=== PATIENT | female | born 1995 | race African-American/Black ===

== ENCOUNTER 2018-06-11 20:59 | Emergency (ER) | payer OTHER | END 2018-06-11 21:15 | disposition left against medical advice (07) | LOC: ER 20:59 | DX: Z53.21 Procedure and treatment not carried out due to patient leaving prior to being seen by health care provider (principal) ==

== ENCOUNTER 2018-06-14 13:09 | Emergency (ER) | payer MEDICARE, OTHER ==
[~2018-06-14] VITALS: Ht 165.1 cm; Wt 60.0 kg
[2018-06-14] MEDS ORDERED: TETANUS, DIPHTHERIA, PERTUSSIS VAC/PF 0.5ML (>7YR OLD) IM ONE (18:30)
[2018-06-14] MEDS ORDERED: BACITRACIN ZINC OINT UDPKT TOP ONE (18:30)
[2018-06-14 19:24] VITALS: BP 117/60
== END 2018-06-14 19:24 | disposition home or self-care (01) ==
LOC: ER 13:09
DX: S88.911A Complete traumatic amputation of right lower leg, level unspecified, initial encounter (principal); S58.91 Complete traumatic amputation of forearm, level unspecified; W18.39XA Other fall on same level, initial encounter; Y93.89 Activity, other specified; Y92.89 Other specified places as the place of occurrence of the external cause; Y99.8 Other external cause status
CPT/HCPCS: 90471; 90715; 99283

== ENCOUNTER 2019-02-03 11:01 | Emergency (ER) | payer MEDICARE ==
[~2019-02-03] VITALS: Ht 167.6 cm; Wt 65.0 kg
[2019-02-03 12:01] VITALS: BP 97/55
[2019-02-03] MEDS ORDERED: DEXAMETHASONE 10 MG/ML VIAL IM ONE (16:00)
[2019-02-03] MEDS ORDERED: IBUPROFEN 600MG TABLET PO ONE (16:00)
== END 2019-02-03 17:20 | disposition home or self-care (01) ==
LOC: ER 11:01
DX: J03.90 Acute tonsillitis, unspecified (principal)
CPT/HCPCS: 81025; 87070; 87430; 96372; 99283; J1100

== ENCOUNTER 2019-12-18 02:26 | Emergency (ER) | payer MEDICAID, MEDICARE ==
[~2019-12-18] VITALS: Ht 167.6 cm; Wt 82.7 kg
[2019-12-18] MEDS ORDERED: LIDOCAINE HCL/EPINEPHRINE 1%-EPI 1:100,000 20 ML VIAL INFIL ONE (03:00)
[2019-12-18] MEDS ORDERED: HYDROCODONE/ACETAMINOPHEN 5/325MG TABLET PO ONE ×2 (03:00→06:30)
[2019-12-18 03:10] LABS: BASOPHILS % 0.5 % (0.0-2.0); EOSINOPHILS % 0.1 % (0.0-5.0); HEMATOCRIT. 36.5 % (36.0-48.0); HEMOGLOBIN. 12.1 g/dL (12.0-16.0); LYMPHOCYTES % 8.2 % (20.0-50.0); MEAN CORPUSCULAR HEMOGLOBIN 28.5 pg (28.0-32.0); MEAN CORPUSCULAR VOLUME 86.3 fL (81.0-99.0); MEAN PLATELET VOLUME 8.9 fl (7.4-10.4); MONOCYTES % 4.5 % (2.0-8.0); NEUTROPHILS % 86.7 % (40.0-76.0); PLATELET 323 x1000/uL (130-400); RED BLOOD CELL COUNT 4.23 mill/uL (4.2-5.4); RED CELL DISTRIBUTION WIDTH 14.9 % (11.6-14.6)
[2019-12-18 03:18] LABS: CHLORIDE 108 mEq/L (98-107)
[2019-12-18 03:29] LABS: HCG SCREEN NEGATIVE
[2019-12-18] MEDS ORDERED: KETOROLAC 60MG/2ML VIAL IM SCH (04:15)
[2019-12-18 05:14] LABS: *AMPHETAMINES SCREEN URINE NEGATIVE (NEGATIVE); *BARBITURATES SCREEN URINE NEGATIVE (NEGATIVE); *BENZODIAZEPINES SCREEN URINE NEGATIVE (NEGATIVE); CANNABINOID URINE SCREEN NEGATIVE (NEGATIVE); PHENCYCLIDINE URINE SCREEN NEGATIVE (NEGATIVE)
[2019-12-18 05:15] LABS: METHADONE URINE SCREEN NEGATIVE (NEGATIVE); OPIATES URINE SCREEN NEGATIVE (NEGATIVE)
[2019-12-18 05:16] LABS: *COCAINE SCREEN URINE PRESUMTIVE POSITIVE (NEGATIVE)
[2019-12-18 06:53] VITALS: BP 127/52
== END 2019-12-18 07:28 | disposition home or self-care (01) ==
LOC: ER 02:26
DX: S01.81XA Laceration without foreign body of other part of head, initial encounter (principal); S51.811A Laceration without foreign body of right forearm, initial encounter; M79.671 Pain in right foot; X99.0XXA Assault by sharp glass, initial encounter; Y93.89 Activity, other specified; F14.10 Cocaine abuse, uncomplicated; Y92.018 Other place in single-family (private) house as the place of occurrence of the external cause
CPT/HCPCS: 36415; 70450; 73090; 73630; 80053; 80305; 80320; 81025; 83690; 84703; 85025; 93005; 96372; 99285; J1885; J3490; G0480

== ENCOUNTER 2020-08-13 19:49 | Emergency (ER) | payer MEDICAID ==
[~2020-08-13] VITALS: Ht 162.6 cm; Wt 91.0 kg
[2020-08-13 22:14] LABS: CLARITY URINE CLEAR (CLEAR); COLOR URINE YELLOW (YELLOW); KETONES URINE NEGATIVE (NEGATIVE); LEUKOCYTE ESTERASE URINE NEGATIVE (NEGATIVE); NITRITE URINE NEGATIVE (NEGATIVE); OCCULT BLOOD URINE NEGATIVE (NEGATIVE); PROTEIN URINE NEGATIVE (NEGATIVE); SPECIFIC GRAVITY URINE 1.021 (1.005-1.030)
[2020-08-13 22:28] LABS: *COCAINE SCREEN URINE NEGATIVE (NEGATIVE); METHADONE URINE SCREEN NEGATIVE (NEGATIVE); OPIATES URINE SCREEN NEGATIVE (NEGATIVE); PHENCYCLIDINE URINE SCREEN NEGATIVE (NEGATIVE)
[2020-08-13 22:29] LABS: *AMPHETAMINES SCREEN URINE NEGATIVE (NEGATIVE); *BARBITURATES SCREEN URINE NEGATIVE (NEGATIVE); *BENZODIAZEPINES SCREEN URINE NEGATIVE (NEGATIVE); CANNABINOID URINE SCREEN NEGATIVE (NEGATIVE)
[2020-08-13 22:30] LABS: BASOPHILS % 0.9 % (0.0-2.0); HEMATOCRIT. 34.4 % (36.0-48.0); HEMOGLOBIN. 11.6 g/dL (12.0-16.0); LYMPHOCYTES % 33.2 % (20.0-50.0); MEAN CORPUSCULAR HEMOGLOBIN 28.3 pg (28.0-32.0); MEAN PLATELET VOLUME 8.3 fl (7.4-10.4); MONOCYTES % 6.9 % (2.0-8.0); PLATELET 371 x1000/uL (130-400); RED CELL DISTRIBUTION WIDTH 14.3 % (11.6-14.6)
[2020-08-13 22:32] LABS: CHLORIDE 105 mEq/L (98-107)
[2020-08-13 22:35] LABS: HCG SCREEN NEGATIVE
[2020-08-13] MEDS ORDERED: NAPR-681 MT (23:17)
[2020-08-13 23:27] VITALS: BP 128/75
== END 2020-08-13 23:28 | disposition home or self-care (01) ==
LOC: ER 19:49
DX: N93.8 Other specified abnormal uterine and vaginal bleeding (principal); D64.9 Anemia, unspecified; I10 Essential (primary) hypertension; F17.290 Nicotine dependence, other tobacco product, uncomplicated
CPT/HCPCS: 36415; 76830; 76856; 80053; 80305; 81003; 81025; 84703; 85025; 99284